=== PATIENT | male | born 1995 | race Caucasian/White ===

== ENCOUNTER 2018-08-20 22:36 | Emergency (ER) | payer OTHER ==
[~2018-08-20] VITALS: Ht 165.1 cm; Wt 55.0 kg
[2018-08-20] MEDS ORDERED: SODIUM CHLORIDE FLUSH 10ML SYR IVF ONE (23:00)
[2018-08-20] MEDS: LORazepam 1MG TABLET PO ONE ×2 (23:08→23:13)
[2018-08-20] MEDS ORDERED: LORazepam 1MG TABLET ONE (23:08)
--- NOTE | 2018-08-20 23:10 | NUR ---
PT BIB [facility] FOR FLUTTERING FEELING IN CHEST. HE ALSO FELT DIZZY AND HAD SOME SWEATING BUT NO CP. EKG STRIP NORMALHR 80'S TO 100'S INITIALLY, NOW 80'S TO 90'S.STATES FEELING A LITTLE DIZZY NOW, HOWEVER PT PACING WITH STEADY GAIT. EKG PERFORMED, AT , CALL LIGHT IN REACH
--- NOTE | 2018-08-20 23:11 | NUR ---
PT REFUSED [facility], ACCIDENTLY CLICKED ADMINISTERED
[2018-08-20 23:20] LABS: BASOPHILS # (AUTO) 0.04 x10^3/uL (0-0.1); BASOPHILS % (AUTO) 1 % (0-1); EOSINOPHILS # (AUTO) 0.22 x10^3/uL (0-0.4); EOSINOPHILS % (AUTO) 3 % (1-7); LYMPHOCYTES # (AUTO) 2.22 x10^3/uL (1-3.4); LYMPHOCYTES % (AUTO) 26 % (22-44); MD NO; MEAN CORPUSCULAR HEMOGLOBIN 29.9 pg (27.5-34.5); MEAN CORPUSCULAR HGB CONC 34.5 g/dL (33.2-36.2); MEAN CORPUSCULAR VOLUME 86.7 fL (81-97); MEAN PLATELET VOLUME 7.9 fL (7.4-10.4); MONOCYTES # (AUTO) 0.57 x10^3/uL (0.2-0.8); MONOCYTES % (AUTO) 7 % (2-9); NEUTROPHILS # (AUTO) 5.54 x10^3/uL (1.8-6.8); NEUTROPHILS % (AUTO) 65 % (42-75); PLATELET COUNT 222 x10^3/uL (130-400); RED BLOOD COUNT 5.42 x10^6/uL (4.38-5.82); RED CELL DISTRIBUTION WIDTH 12.5 % (9.4-14.8)
[2018-08-20 23:28] LABS: ALANINE AMINOTRANSFERASE 20 U/L (12-78); ALBUMIN 4.2 g/dL (3.4-5.0); ANION GAP 6 mmol/L (5-15); CALCIUM 8.4 mg/dL (8.5-10.1); CHLORIDE 106 mmol/L (98-107); CREATININE 0.87 mg/dL (0.7-1.3)
[2018-08-20] MEDS ORDERED: PLEASE ENTER ALLERGIES MC SCH (23:30)
[2018-08-20 23:38] LABS: ALKALINE PHOSPHATASE 46 U/L (45-117); BILIRUBIN,TOTAL 0.5 mg/dL (0.2-1.0); T4 (THYROXINE) 9.1 mcg/dL (4.5-12.1); TOTAL PROTEIN 7.1 g/dL (6.4-8.2)
[2018-08-21 00:17] VITALS: BP 112/72
--- NOTE | 2018-08-21 00:18 | NUR ---
Patient/Caregiver given discharge instructions and they have confirmed that they understand the instructions. Patient ambulatory with steady gait.
== END 2018-08-21 00:22 | disposition home or self-care (01) ==
LOC: ED 23:33
DX: R00.2 Palpitations (principal)
CPT/HCPCS: 36415; 71045; 80053; 83735; 84436; 84443; 85025; 93005; 99284